=== PATIENT | male | born 1960 | race Two or more races ===

== ENCOUNTER 2022-07-20 11:03 | Inpatient (IN) | payer MEDICAID ==
[~2022-07-20] VITALS: Ht 188 cm; Wt 84.8 kg
[2022-07-20 13:03] LABS: HEMATOCRIT. 46.7 % (36.0-48.0); HEMOGLOBIN. 15.9 g/dL (12.0-16.0); MEAN CORPUSCULAR HEMOGLOBIN 30.4 pg (28.0-32.0); MEAN CORPUSCULAR VOLUME 89.2 fL (81.0-99.0); MEAN PLATELET VOLUME 7.6 fl (7.4-10.4); PLATELET 314 x1000/uL (130-400); RED BLOOD CELL COUNT 5.24 mill/uL (4.2-5.4)
[2022-07-20 13:13] LABS: CHLORIDE 112 mEq/L (98-107)
[2022-07-20 13:26] LABS: PLATELET ESTIMATE NORMAL
[2022-07-20] MEDS ORDERED: DIPHENHYDRAMINE 25MG CAPSULE PO ONE (18:00)
[2022-07-20] MEDS ORDERED: IOHEXOL-350 100 ML BOTTLE ONE (21:45)
[2022-07-20 22:34] VITALS: BP 169/70
[2022-07-20] MEDS ORDERED: ZOLPIDEM TARTRATE 5MG TABLET PO PRN (23:45)
[2022-07-21] VITALS: BP 160/88
[2022-07-21] MEDS: LORAZEPAM 2MG/ML CPJ IV PRN ×3 (00:24→17:36)
[2022-07-21] MEDS: ONDANSETRON HCL 4MG/2ML INJ IV PRN (03:54)
[2022-07-21 04:00] VITALS: BP 162/77
[2022-07-21] MEDS: CLONIDINE 0.1MG TABLET PO PRN ×2 (05:14→20:43)
[2022-07-21 06:56] LABS: HEMATOCRIT. 45.7 % (36.0-48.0); HEMOGLOBIN. 15.6 g/dL (12.0-16.0); MEAN CORPUSCULAR HEMOGLOBIN 30.4 pg (28.0-32.0); MEAN CORPUSCULAR VOLUME 89.4 fL (81.0-99.0); PLATELET 328 x1000/uL (130-400); RED BLOOD CELL COUNT 5.12 mill/uL (4.2-5.4); RED CELL DISTRIBUTION WIDTH 13.9 % (11.6-14.6)
[2022-07-21 08:00] VITALS: BP 130/61
[2022-07-21] MEDS: ASPIRIN 81MG TABLET PO SCH (08:53)
[2022-07-21] MEDS: AMLODIPINE 10MG TABLET PO SCH (08:53)
[2022-07-21] MEDS: PANTOPRAZOLE SODIUM 40 MG/VIAL IV SCH (08:54)
[2022-07-21] MEDS ORDERED: INFLUENZA VACCINE 05/PF 0.5 ML SYRINGE IM ONE (10:00)
[2022-07-21] MEDS ORDERED: PNEUMOCOCCAL 23-VAL P-SAC VAC 0.5 ML IM ONE (10:00)
[2022-07-21 12:00] VITALS: BP 134/74
[2022-07-21 16:00] VITALS: BP 159/81
[2022-07-21] MEDS: CLOPIDOGREL 75MG TABLET PO SCH (17:36)
[2022-07-21 18:21] LABS: PLATELET ESTIMATE NORMAL
[2022-07-21] MEDS ORDERED: NALOXONE HCL 0.4MG/ML VIAL IV PRN (19:45)
[2022-07-21 20:00] VITALS: BP 164/77
[2022-07-21] MEDS: HYDROCODONE/ACETAMINOPHEN 10/325MG TABLET PO PRN (20:44)
[2022-07-21] MEDS: ATORVASTATIN CALCIUM 40MG TABLET PO SCH (20:46)
[2022-07-21 21:27] LABS: CLARITY URINE CLEAR (CLEAR); COLOR URINE YELLOW (YELLOW); KETONES URINE NEGATIVE (NEGATIVE); LEUKOCYTE ESTERASE URINE NEGATIVE (NEGATIVE); NITRITE URINE NEGATIVE (NEGATIVE); OCCULT BLOOD URINE NEGATIVE (NEGATIVE); PROTEIN URINE NEGATIVE (NEGATIVE); SPECIFIC GRAVITY URINE 1.024 (1.005-1.030); UROBILINOGEN URINE 0.2 E.U./dL (0.2-1.0)
[2022-07-22] VITALS: BP 118/72
[2022-07-22] MEDS: LORAZEPAM 2MG/ML CPJ IV PRN ×4 (01:25→21:03)
[2022-07-22 04:00] VITALS: BP 132/76
[2022-07-22 08:00] VITALS: BP 140/72
[2022-07-22] MEDS: PANTOPRAZOLE SODIUM 40 MG/VIAL IV SCH (08:10)
[2022-07-22] MEDS: ASPIRIN 81MG TABLET PO SCH (08:11)
[2022-07-22] MEDS: AMLODIPINE 10MG TABLET PO SCH (08:11)
[2022-07-22] MEDS: CLOPIDOGREL 75MG TABLET PO SCH (08:11)
[2022-07-22 12:00] VITALS: BP 148/76
[2022-07-22] MEDS: DOCUSATE SODIUM 250MG CAPSULE PO SCH (15:12)
[2022-07-22] MEDS: TAMSULOSIN HCL 0.4MG SR CAPSULE PO SCH (15:12)
[2022-07-22 16:00] VITALS: BP 134/83
[2022-07-22] MEDS: HYDROCODONE/ACETAMINOPHEN 10/325MG TABLET PO PRN (19:44)
[2022-07-22 20:00] VITALS: BP 143/72
[2022-07-22] MEDS: ATORVASTATIN CALCIUM 40MG TABLET PO SCH (21:02)
[2022-07-23] VITALS: BP 144/66
[2022-07-23] MEDS: HYDROCODONE/ACETAMINOPHEN 10/325MG TABLET PO PRN (01:39)
[2022-07-23] MEDS: LORAZEPAM 2MG/ML CPJ IV PRN ×2 (03:01→19:50)
[2022-07-23 04:00] VITALS: BP 118/67
[2022-07-23 08:08] VITALS: BP 137/76
[2022-07-23] MEDS: DOCUSATE SODIUM 250MG CAPSULE PO SCH (08:48)
[2022-07-23] MEDS: ASPIRIN 81MG TABLET PO SCH (08:48)
[2022-07-23] MEDS: AMLODIPINE 10MG TABLET PO SCH (08:49)
[2022-07-23] MEDS: CLOPIDOGREL 75MG TABLET PO SCH (08:49)
[2022-07-23] MEDS: TAMSULOSIN HCL 0.4MG SR CAPSULE PO SCH (08:49)
[2022-07-23] MEDS ORDERED: FAMOTIDINE 20MG/2ML VIAL IV SCH (09:00)
[2022-07-23] MEDS: RISPERIDONE 0.5MG TABLET PO SCH ×2 (12:14→17:18)
[2022-07-23 12:39] VITALS: BP 137/66
[2022-07-23 16:22] VITALS: BP 123/59
[2022-07-23 20:00] VITALS: BP 132/58
[2022-07-23] MEDS: ATORVASTATIN CALCIUM 40MG TABLET PO SCH (20:28)
[2022-07-23] MEDS: FAMOTIDINE 20MG TABLET PO SCH (20:28)
[2022-07-24] VITALS: BP 146/67
[2022-07-24] MEDS: LORAZEPAM 2MG/ML CPJ IV PRN ×4 (02:06→22:32)
[2022-07-24 04:00] VITALS: BP 127/68
[2022-07-24 08:00] VITALS: BP 122/57
[2022-07-24] MEDS: AMLODIPINE 10MG TABLET PO SCH (08:12)
[2022-07-24] MEDS: FAMOTIDINE 20MG TABLET PO SCH ×2 (08:12→21:45)
[2022-07-24] MEDS: DOCUSATE SODIUM 250MG CAPSULE PO SCH (08:12)
[2022-07-24] MEDS: CLOPIDOGREL 75MG TABLET PO SCH (08:12)
[2022-07-24] MEDS: RISPERIDONE 0.5MG TABLET PO SCH (08:12)
[2022-07-24] MEDS: TAMSULOSIN HCL 0.4MG SR CAPSULE PO SCH (08:12)
[2022-07-24] MEDS: ASPIRIN 81MG TABLET PO SCH (08:12)
[2022-07-24 12:00] VITALS: BP_SYST 131; BP_SYST 139; BP_DIAS 64; BP_DIAS 72
[2022-07-24 16:00] VITALS: BP 128/71
[2022-07-24] MEDS: ATORVASTATIN CALCIUM 40MG TABLET PO SCH (21:45)
[2022-07-24] MEDS: RISPERIDONE 1MG TABLET PO SCH (21:45)
[2022-07-25] VITALS: BP 130/66
[2022-07-25 04:00] VITALS: BP 157/96
[2022-07-25] MEDS: HYDROCODONE/ACETAMINOPHEN 10/325MG TABLET PO PRN ×3 (05:07→23:43)
[2022-07-25 08:00] VITALS: BP 120/65
[2022-07-25] MEDS: ASPIRIN 81MG TABLET PO SCH (09:08)
[2022-07-25] MEDS: AMLODIPINE 10MG TABLET PO SCH (09:09)
[2022-07-25] MEDS: DOCUSATE SODIUM 250MG CAPSULE PO SCH (09:10)
[2022-07-25] MEDS: FAMOTIDINE 20MG TABLET PO SCH ×2 (09:10→21:23)
[2022-07-25] MEDS: TAMSULOSIN HCL 0.4MG SR CAPSULE PO SCH (09:10)
[2022-07-25] MEDS: RISPERIDONE 1MG TABLET PO SCH ×2 (09:10→21:24)
[2022-07-25] MEDS: CLOPIDOGREL 75MG TABLET PO SCH (09:10)
[2022-07-25 12:00] VITALS: BP 123/64
[2022-07-25 16:00] VITALS: BP 111/82
[2022-07-25] MEDS: LORAZEPAM 2MG/ML CPJ IV PRN ×2 (18:20→18:54)
[2022-07-25 20:00] VITALS: BP 151/92
[2022-07-25] MEDS: ATORVASTATIN CALCIUM 40MG TABLET PO SCH (21:22)
[2022-07-26] VITALS: BP 166/73
[2022-07-26 04:00] VITALS: BP 144/68
[2022-07-26 08:00] VITALS: BP 162/84
[2022-07-26] MEDS: ASPIRIN 81MG TABLET PO SCH (09:41)
[2022-07-26] MEDS: FAMOTIDINE 20MG TABLET PO SCH ×2 (09:41→21:38)
[2022-07-26] MEDS: CLOPIDOGREL 75MG TABLET PO SCH (09:41)
[2022-07-26] MEDS: RISPERIDONE 1MG TABLET PO SCH ×2 (09:41→21:37)
[2022-07-26] MEDS: DOCUSATE SODIUM 250MG CAPSULE PO SCH (09:41)
[2022-07-26] MEDS: AMLODIPINE 10MG TABLET PO SCH (09:42)
[2022-07-26] MEDS: TAMSULOSIN HCL 0.4MG SR CAPSULE PO SCH (09:42)
[2022-07-26 12:00] VITALS: BP 139/72
[2022-07-26] MEDS ORDERED: FAMOTIDINE 20MG/2ML VIAL IV SCH (14:15)
[2022-07-26] MEDS ORDERED: MAGNESIUM/ALUMINUM HYDROXIDE/SIMETHICONE 30ML UDC PO PRN (15:45)
[2022-07-26 16:00] VITALS: BP 137/81
[2022-07-26 20:00] VITALS: BP 114/63
[2022-07-26] MEDS: ATORVASTATIN CALCIUM 40MG TABLET PO SCH (21:38)
[2022-07-26] MEDS ORDERED: ZOLPIDEM TARTRATE 5MG TABLET PO PRN (22:45)
[2022-07-26] MEDS ORDERED: LORAZEPAM 2MG/ML CPJ IV PRN (22:45)
[2022-07-26] MEDS ORDERED: NALOXONE HCL 0.4MG/ML VIAL IV PRN (23:00)
[2022-07-27] VITALS: BP 134/56
[2022-07-27] MEDS: HYDROCODONE/ACETAMINOPHEN 10/325MG TABLET PO PRN ×2 (00:22→20:30)
[2022-07-27 04:00] VITALS: BP 138/64
[2022-07-27 08:00] VITALS: BP 140/72
[2022-07-27] MEDS: AMLODIPINE 10MG TABLET PO SCH (09:52)
[2022-07-27] MEDS: DOCUSATE SODIUM 250MG CAPSULE PO SCH (09:52)
[2022-07-27] MEDS: ASPIRIN 81MG TABLET PO SCH (09:52)
[2022-07-27] MEDS: RISPERIDONE 1MG TABLET PO SCH ×2 (09:52→20:29)
[2022-07-27] MEDS: CLOPIDOGREL 75MG TABLET PO SCH (09:52)
[2022-07-27] MEDS: TAMSULOSIN HCL 0.4MG SR CAPSULE PO SCH (09:52)
[2022-07-27] MEDS: FAMOTIDINE 20MG TABLET PO SCH ×2 (09:52→20:29)
[2022-07-27 12:00] VITALS: BP 120/102
[2022-07-27] MEDS: FLUOXETINE HCL 10 MG CAPSULE PO SCH (13:28)
[2022-07-27 16:00] VITALS: BP 127/59
[2022-07-27 20:00] VITALS: BP 148/71
[2022-07-27] MEDS: ATORVASTATIN CALCIUM 40MG TABLET PO SCH (20:29)
[2022-07-28] VITALS: BP 113/80
[2022-07-28] MEDS: HYDROCODONE/ACETAMINOPHEN 10/325MG TABLET PO PRN ×2 (02:50→20:29)
[2022-07-28 04:00] VITALS: BP 134/64
[2022-07-28 08:00] VITALS: BP 134/75
[2022-07-28] MEDS: FAMOTIDINE 20MG TABLET PO SCH ×2 (10:04→21:15)
[2022-07-28] MEDS: FLUOXETINE HCL 10 MG CAPSULE PO SCH (10:04)
[2022-07-28] MEDS: TAMSULOSIN HCL 0.4MG SR CAPSULE PO SCH (10:04)
[2022-07-28] MEDS: CLOPIDOGREL 75MG TABLET PO SCH (10:04)
[2022-07-28] MEDS: ASPIRIN 81MG TABLET PO SCH (10:04)
[2022-07-28] MEDS: DOCUSATE SODIUM 250MG CAPSULE PO SCH (10:05)
[2022-07-28] MEDS: AMLODIPINE 10MG TABLET PO SCH (10:05)
[2022-07-28] MEDS: RISPERIDONE 1MG TABLET PO SCH ×2 (10:05→21:15)
[2022-07-28] MEDS: ONDANSETRON HCL 4MG/2ML INJ IV PRN (10:53)
[2022-07-28 12:00] VITALS: BP 136/67
[2022-07-28 16:00] VITALS: BP 125/62
[2022-07-28 20:00] VITALS: BP 132/54
[2022-07-28] MEDS: ATORVASTATIN CALCIUM 40MG TABLET PO SCH (21:15)
[2022-07-29] VITALS (10 sets, daily range): BP systolic 119–158; BP diastolic 61–72
[2022-07-29] MEDS: HYDROCODONE/ACETAMINOPHEN 10/325MG TABLET PO PRN ×2 (06:54→21:11)
[2022-07-29] MEDS: DOCUSATE SODIUM 250MG CAPSULE PO SCH (09:34)
[2022-07-29] MEDS: CLOPIDOGREL 75MG TABLET PO SCH (09:34)
[2022-07-29] MEDS: ASPIRIN 81MG TABLET PO SCH (09:34)
[2022-07-29] MEDS: FAMOTIDINE 20MG TABLET PO SCH ×2 (09:34→21:10)
[2022-07-29] MEDS: FLUOXETINE HCL 10 MG CAPSULE PO SCH ×2 (09:34→09:35)
[2022-07-29] MEDS: RISPERIDONE 1MG TABLET PO SCH ×2 (09:34→21:10)
[2022-07-29] MEDS: AMLODIPINE 10MG TABLET PO SCH (09:34)
[2022-07-29] MEDS: TAMSULOSIN HCL 0.4MG SR CAPSULE PO SCH (09:44)
[2022-07-29] MEDS ORDERED: LACTULOSE 20G/30ML UDC PO NR (12:30)
[2022-07-29] MEDS: ATORVASTATIN CALCIUM 40MG TABLET PO SCH (21:10)
== END 2022-07-29 21:58 | DRG 45 ==
LOC: ER 11:03 → EDBEDREQ 18:13 → EDBEDREQTM 18:13 → 8WST 23:32 → EDSEX 23:32 → 6EST 07-24 20:19
PROVIDERS: ADMIT Internal Medicine; ATTEND Internal Medicine
DX: I63.81 Other cerebral infarction due to occlusion or stenosis of small artery (principal); G93.40 Encephalopathy, unspecified; E44.1 Mild protein-calorie malnutrition; Z20.822 Contact with and (suspected) exposure to COVID-19; I10 Essential (primary) hypertension; E78.00 Pure hypercholesterolemia, unspecified; F17.210 Nicotine dependence, cigarettes, uncomplicated; J45.909 Unspecified asthma, uncomplicated; E78.5 Hyperlipidemia, unspecified; H53.8 Other visual disturbances; I69.351 Hemiplegia and hemiparesis following cerebral infarction affecting right dominant side; I25.2 Old myocardial infarction; D72.819 Decreased white blood cell count, unspecified; Z68.24 Body mass index [BMI] 24.0-24.9, adult
CPT/HCPCS: 36415; 70496; 70498; 70551; 71045; 80053; 80061; 80305; 81003; 83036; 83880; 84484; 85025; 87426; 90686; 90732; 92523; 93005; 93306; 97112; 97162; 97166; 97530; 97535; 99291; C1893; C9113; J2060; J2405; J3490; Q0163; Q9967

== ENCOUNTER 2022-09-28 11:41 | Inpatient (IN) | payer MEDICAID ==
[~2022-09-28] VITALS: Ht 188 cm; Wt 89.4 kg
[2022-09-28 12:30] LABS: BASOPHILS % 0.8 % (0.0-2.0); EOSINOPHILS % 0.9 % (0.0-5.0); HEMATOCRIT. 46.2 % (42.0-52.0); HEMOGLOBIN. 16.3 g/dL (14.0-18.0); MEAN CORPUSCULAR HEMOGLOBIN 30.6 pg (28.0-32.0); MEAN CORPUSCULAR VOLUME 86.8 fL (80.0-94.0); MONOCYTES % 13.7 % (2.0-8.0); NEUTROPHILS % 63.6 % (40.0-76.0); PLATELET 293 x1000/uL (130-400); RED BLOOD CELL COUNT 5.32 mill/uL (4.7-6.1); RED CELL DISTRIBUTION WIDTH 14.1 % (11.6-14.6)
[2022-09-28 12:38] LABS: CHLORIDE 105 mEq/L (98-107)
[2022-09-28 12:53] LABS: PARTIAL THROMBOPLASTIN TIME 31.1 sec (23.4-31.0); PROTHROMBIN TIME 11.2 sec (9.6-11.0)
[2022-09-28 16:14] LABS: CLARITY URINE CLEAR (CLEAR); COLOR URINE YELLOW (YELLOW); KETONES URINE TRACE (NEGATIVE); LEUKOCYTE ESTERASE URINE NEGATIVE (NEGATIVE); NITRITE URINE NEGATIVE (NEGATIVE); OCCULT BLOOD URINE NEGATIVE (NEGATIVE); PH URINE 5.5 (4.5-8.0); PROTEIN URINE TRACE (NEGATIVE); SPECIFIC GRAVITY URINE 1.012 (1.005-1.030); UROBILINOGEN URINE 0.2 E.U./dL (0.2-1.0)
[2022-09-28] MEDS ORDERED: IBUPROFEN 600MG TABLET PO ONE (18:00)
[2022-09-28] MEDS ORDERED: IOHEXOL-350 100 ML BOTTLE ONE (19:02)
[2022-09-28] MEDS ORDERED: MORPHINE SULFATE 4 MG/ML CPJ (NOT FOR IM USE) IV ONE (20:30)
[2022-09-29 06:40] VITALS: BP 139/76
[2022-09-29] MEDS ORDERED: AMLO10TA80 PO (08:14)
[2022-09-29] MEDS ORDERED: BACL-141 PO (08:14)
[2022-09-29] MEDS ORDERED: FAMO20TA8 PO (08:14)
[2022-09-29] MEDS ORDERED: CLOP75TA33 PO (08:14)
[2022-09-29] MEDS ORDERED: IBUP-2029 PO (08:14)
[2022-09-29 08:21] VITALS: BP 142/76
[2022-09-29] MEDS ORDERED: TAMS-11 PO (08:29)
[2022-09-29] MEDS ORDERED: ONDANSETRON HCL 4MG/2ML INJ IV PRN (09:00)
[2022-09-29] MEDS ORDERED: DIPHENHYDRAMINE 50MG/ML VIAL IV PRN (09:00)
[2022-09-29] MEDS ORDERED: CLONIDINE 0.1MG TABLET PO PRN (09:00)
[2022-09-29] MEDS ORDERED: IPRATROPIUM/ALBUTEROL 0.5-3(2.5)MG/3ML NEB HHN PRN (09:00)
[2022-09-29] MEDS ORDERED: IPRATROPIUM BROMIDE (0.02%) 0.5MG/2.5ML NEB HHN PRN (09:30)
[2022-09-29] MEDS ORDERED: ALBUTEROL (0.083%) 2.5MG/3ML NEB HHN PRN (09:30)
[2022-09-29] MEDS ORDERED: POTASSIUM CHLORIDE INJ 40 MEQ in DEXT 5% WATER 250 ML IV NR (10:30)
[2022-09-29] MEDS: ENOXAPARIN 40MG/0.4ML SYR SUBCUT SCH (11:12)
[2022-09-29] MEDS: ACETAMINOPHEN 325MG TABLET PO PRN ×3 (11:13→20:06)
[2022-09-29 11:35] VITALS: BP 116/80
[2022-09-29 12:05] VITALS: BP 136/72
[2022-09-29] MEDS ORDERED: NITROGLYCERIN SPRAY/4.9GM CAN TL SCH (14:00)
[2022-09-29] MEDS ORDERED: FUROSEMIDE 20MG/2ML VIAL IVP NR (14:30)
[2022-09-29] MEDS ORDERED: IOHEXOL-350 100 ML BOTTLE ONE (15:04)
[2022-09-29] MEDS: METOPROLOL TARTRATE 25MG TABLET PO SCH ×2 (15:40→20:05)
[2022-09-29 16:00] VITALS: BP 126/68
[2022-09-29 20:00] VITALS: BP 124/66
[2022-09-30] VITALS: BP 126/58
[2022-09-30 04:00] VITALS: BP 128/68
[2022-09-30] MEDS: ACETAMINOPHEN 325MG TABLET PO PRN ×3 (05:30→21:37)
[2022-09-30 06:49] LABS: HEMATOCRIT. 40.9 % (42.0-52.0); HEMOGLOBIN. 14.1 g/dL (14.0-18.0); MEAN CORPUSCULAR HEMOGLOBIN 30.3 pg (28.0-32.0); MEAN CORPUSCULAR VOLUME 88.3 fL (80.0-94.0); MEAN PLATELET VOLUME 7.5 fl (7.4-10.4); PLATELET 268 x1000/uL (130-400); RED BLOOD CELL COUNT 4.63 mill/uL (4.7-6.1); RED CELL DISTRIBUTION WIDTH 14.5 % (11.6-14.6)
[2022-09-30 07:28] LABS: CHLORIDE 107 mEq/L (98-107)
[2022-09-30 08:00] VITALS: BP 137/68
[2022-09-30 09:25] LABS: PLATELET ESTIMATE NORMAL
[2022-09-30 12:00] VITALS: BP 139/67
[2022-09-30] MEDS: ENOXAPARIN 40MG/0.4ML SYR SUBCUT SCH (12:41)
[2022-09-30] MEDS: BACLOFEN 10MG TABLET PO SCH ×2 (13:48→21:36)
[2022-09-30 16:00] VITALS: BP 128/74
[2022-09-30 20:00] VITALS: BP 145/71
[2022-10-01] VITALS (7 sets, daily range): BP systolic 121–152; BP diastolic 59–82
[2022-10-01] MEDS: BACLOFEN 10MG TABLET PO SCH ×3 (05:57→21:49)
[2022-10-01 06:12] LABS: HEMATOCRIT. 40.3 % (42.0-52.0); HEMOGLOBIN. 13.7 g/dL (14.0-18.0); MEAN CORPUSCULAR HEMOGLOBIN 29.9 pg (28.0-32.0); MEAN CORPUSCULAR VOLUME 88.2 fL (80.0-94.0); MEAN PLATELET VOLUME 7.8 fl (7.4-10.4); PLATELET 262 x1000/uL (130-400); RED BLOOD CELL COUNT 4.57 mill/uL (4.7-6.1); RED CELL DISTRIBUTION WIDTH 14.7 % (11.6-14.6)
[2022-10-01 06:15] LABS: CHLORIDE 106 mEq/L (98-107)
[2022-10-01] MEDS: ENOXAPARIN 40MG/0.4ML SYR SUBCUT SCH (08:15)
[2022-10-01 09:43] LABS: PLATELET ESTIMATE NORMAL
[2022-10-01] MEDS: ACETAMINOPHEN 325MG TABLET PO PRN (12:14)
[2022-10-01] MEDS ORDERED: NALOXONE HCL 0.4MG/ML VIAL IV PRN (13:00)
[2022-10-01] MEDS: TRAMADOL 50MG TABLET PO PRN (17:48)
[2022-10-02] VITALS: BP 150/73
[2022-10-02] MEDS: TRAMADOL 50MG TABLET PO PRN ×3 (02:06→17:20)
[2022-10-02 04:00] VITALS: BP 138/76
[2022-10-02] MEDS: BACLOFEN 10MG TABLET PO SCH ×3 (05:47→20:35)
[2022-10-02 08:00] VITALS: BP 145/77
[2022-10-02] MEDS: ENOXAPARIN 40MG/0.4ML SYR SUBCUT SCH (08:59)
[2022-10-02] MEDS: DOCUSATE SODIUM 250MG CAPSULE PO SCH (09:00)
[2022-10-02 12:00] VITALS: BP_SYST 139; BP_SYST 142; BP_DIAS 60; BP_DIAS 78
[2022-10-02] MEDS: ACETAMINOPHEN 325MG TABLET PO PRN (12:39)
[2022-10-02 16:00] VITALS: BP 131/63
[2022-10-02 20:00] VITALS: BP 149/78
[2022-10-03] VITALS: BP 137/59
[2022-10-03 04:00] VITALS: BP 146/69
[2022-10-03] MEDS: BACLOFEN 10MG TABLET PO SCH ×3 (07:04→21:09)
[2022-10-03 08:00] VITALS: BP 120/70
[2022-10-03] MEDS: ENOXAPARIN 40MG/0.4ML SYR SUBCUT SCH (09:52)
[2022-10-03] MEDS: TRAMADOL 50MG TABLET PO PRN ×2 (09:53→21:11)
[2022-10-03] MEDS: DOCUSATE SODIUM 250MG CAPSULE PO SCH (09:53)
[2022-10-03 12:34] VITALS: BP 132/79
[2022-10-03 15:52] VITALS: BP 140/75
[2022-10-03 20:00] VITALS: BP 130/66
[2022-10-04] VITALS: BP 126/80
[2022-10-04 04:00] VITALS: BP 133/80
[2022-10-04] MEDS: TRAMADOL 50MG TABLET PO PRN ×2 (04:47→20:10)
[2022-10-04] MEDS: BACLOFEN 10MG TABLET PO SCH (05:18)
[2022-10-04 08:00] VITALS: BP 146/74
[2022-10-04] MEDS: DOCUSATE SODIUM 250MG CAPSULE PO SCH (09:29)
[2022-10-04] MEDS: ENOXAPARIN 40MG/0.4ML SYR SUBCUT SCH (09:29)
[2022-10-04 12:00] VITALS: BP 138/72
[2022-10-04] MEDS ORDERED: ZOLPIDEM TARTRATE 5MG TABLET PO PRN (12:45)
[2022-10-04] MEDS: POLYETHYLENE GLYCOL 3350 (17GM) 1 DOSE PACK PO SCH (13:53)
[2022-10-04] MEDS: GABAPENTIN 300MG CAPSULE PO SCH ×3 (13:54→21:01)
[2022-10-04 16:00] VITALS: BP 145/69
[2022-10-04] MEDS: AMMONIUM LACTATE 12% LOTION 240ML TOP SCH (16:54)
[2022-10-04 20:00] VITALS: BP 162/79
[2022-10-05] VITALS: BP 145/72
[2022-10-05] MEDS: TRAMADOL 50MG TABLET PO PRN ×3 (03:57→20:24)
[2022-10-05 04:00] VITALS: BP 146/68
[2022-10-05] MEDS: GABAPENTIN 300MG CAPSULE PO SCH ×3 (05:38→22:00)
[2022-10-05] MEDS: POLYETHYLENE GLYCOL 3350 (17GM) 1 DOSE PACK PO SCH (05:44)
[2022-10-05] MEDS: DOCUSATE SODIUM 250MG CAPSULE PO SCH (05:44)
[2022-10-05 08:00] VITALS: BP 149/80
[2022-10-05] MEDS: AMMONIUM LACTATE 12% LOTION 240ML TOP SCH ×2 (08:36→16:07)
[2022-10-05] MEDS: ENOXAPARIN 40MG/0.4ML SYR SUBCUT SCH (08:36)
[2022-10-05] MEDS ORDERED: LACTULOSE 20G/30ML UDC PO PRN (11:15)
[2022-10-05] MEDS ORDERED: BISACODYL 10MG SUPP PR PRN (11:15)
[2022-10-05 12:00] VITALS: BP 152/79
[2022-10-05] MEDS: ASPIRIN 81MG TABLET PO SCH (12:42)
[2022-10-05] MEDS: CLOTRIMAZOLE 1% TOP SCH (12:42)
[2022-10-05 16:00] VITALS: BP 144/74
[2022-10-05 20:00] VITALS: BP 144/70
[2022-10-05] MEDS: ATORVASTATIN CALCIUM 20MG TABLET PO SCH (21:00)
[2022-10-06] VITALS: BP 150/72
[2022-10-06] MEDS: TRAMADOL 50MG TABLET PO PRN ×2 (02:32→09:05)
[2022-10-06 04:00] VITALS: BP 155/69
[2022-10-06] MEDS: GABAPENTIN 300MG CAPSULE PO SCH ×3 (05:34→21:07)
[2022-10-06 08:00] VITALS: BP 128/70
[2022-10-06] MEDS: POLYETHYLENE GLYCOL 3350 (17GM) 1 DOSE PACK PO SCH (08:58)
[2022-10-06] MEDS: DOCUSATE SODIUM 250MG CAPSULE PO SCH (09:02)
[2022-10-06] MEDS: ASPIRIN 81MG TABLET PO SCH (09:03)
[2022-10-06] MEDS: CYCLOBENZAPRINE 10MG TABLET PO PRN (09:03)
[2022-10-06] MEDS: ENOXAPARIN 40MG/0.4ML SYR SUBCUT SCH (09:06)
[2022-10-06] MEDS: CLOTRIMAZOLE 1% TOP SCH (09:07)
[2022-10-06] MEDS: AMMONIUM LACTATE 12% LOTION 240ML TOP SCH ×2 (09:07→17:08)
[2022-10-06 12:00] VITALS: BP 136/60
[2022-10-06 16:00] VITALS: BP 146/73
[2022-10-06] MEDS: ACETAMINOPHEN 325MG TABLET PO PRN (19:45)
[2022-10-06 20:00] VITALS: BP 140/70
[2022-10-06] MEDS: ATORVASTATIN CALCIUM 20MG TABLET PO SCH (21:07)
[2022-10-07] VITALS: BP 137/78
[2022-10-07 04:00] VITALS: BP 140/72
[2022-10-07] MEDS: ACETAMINOPHEN 325MG TABLET PO PRN (04:22)
[2022-10-07] MEDS: GABAPENTIN 300MG CAPSULE PO SCH ×2 (05:17→13:06)
[2022-10-07 08:00] VITALS: BP 143/65
[2022-10-07] MEDS: ASPIRIN 81MG TABLET PO SCH (09:42)
[2022-10-07] MEDS: DOCUSATE SODIUM 250MG CAPSULE PO SCH (09:42)
[2022-10-07] MEDS: ENOXAPARIN 40MG/0.4ML SYR SUBCUT SCH (09:42)
[2022-10-07] MEDS: CLOTRIMAZOLE 1% TOP SCH (09:42)
[2022-10-07] MEDS: POLYETHYLENE GLYCOL 3350 (17GM) 1 DOSE PACK PO SCH (09:42)
[2022-10-07] MEDS: AMMONIUM LACTATE 12% LOTION 240ML TOP SCH ×2 (09:43→18:28)
[2022-10-07] MEDS: CYCLOBENZAPRINE 10MG TABLET PO PRN (09:48)
[2022-10-07 12:00] VITALS: BP 151/73
[2022-10-07] MEDS ORDERED: CYCL10TA21 PO (12:30)
[2022-10-07] MEDS ORDERED: GABA-532 PO (12:30)
[2022-10-07] MEDS ORDERED: ATOR20TA PO (12:30)
[2022-10-07] MEDS ORDERED: ASPI-1160 PO (12:30)
[2022-10-07] MEDS ORDERED: LACTULOSE 20G/30ML UDC PO NR (13:00)
[2022-10-07 16:00] VITALS: BP 141/71
[2022-10-07 18:12] VITALS: BP 141/71
[2022-10-07] MEDS ORDERED: ACETAMINOPHEN 325MG TABLET PO PRN (18:15)
== END 2022-10-07 17:10 | DRG 45 ==
LOC: ER 11:41 → MICUSO 20:41 → EDBEDREQ 20:59 → EDBEDREQTM 20:59 → 7EST 09-29 08:25 → 5WST 10-03 11:43
PROVIDERS: ADMIT Internal Medicine; ATTEND Internal Medicine
DX: I63.9 Cerebral infarction, unspecified (principal); I50.43 Acute on chronic combined systolic (congestive) and diastolic (congestive) heart failure; I11.0 Hypertensive heart disease with heart failure; I69.351 Hemiplegia and hemiparesis following cerebral infarction affecting right dominant side; Z20.822 Contact with and (suspected) exposure to COVID-19; I16.0 Hypertensive urgency; B35.1 Tinea unguium; J44.9 Chronic obstructive pulmonary disease, unspecified; L84 Corns and callosities; L85.3 Xerosis cutis; Z88.0 Allergy status to penicillin; Z90.2 Acquired absence of lung [part of]; Z79.82 Long term (current) use of aspirin
CPT/HCPCS: 36415; 70496; 70498; 70551; 71045; 71275; 75571; 80048; 80053; 81003; 83880; 84484; 85025; 87426; 92523; 93005; 93306; 93970; 97112; 97116; 97162; 97166; 99285; J1650; J1940; J2270; J3480; J7060; Q9967